=== PATIENT | female | born 1975 | race Native Hawaiian/Other Pacific Islander ===

== ENCOUNTER 2018-10-20 22:23 | Emergency (ER) | payer OTHER ==
[2018-10-20 23:57] LABS: Basophils # (Auto) 0.1 K/mm3 (0.0-0.1); Basophils % (Auto) 0.7 % (0.0-1.8); Eosinophils # (Auto) 0.3 K/mm3 (0.0-0.4); Eosinophils % (Auto) 3.5 % (0.0-4.3); Hematocrit 33.8 % (30.3-42.9); Lymphocytes # (Auto) 2.6 K/mm3 (1.2-5.4); Lymphocytes % (Auto) 32.2 % (13.4-35.0); Mean Corpuscular HGB Conc 33 % (30-34); Mean Corpuscular Volume 83 fl (79-97); Monocytes # (Auto) 0.7 K/mm3 (0.0-0.8); Monocytes % (Auto) 8.8 % (0.0-7.3); Platelet Count 242 K/mm3 (140-440); Red Blood Count 4.09 M/mm3 (3.65-5.03); Red Cell Distribution Width 17.6 % (13.2-15.2)
[2018-10-21 00:14] LABS: BUN/Creatinine Ratio 16; Blood Urea Nitrogen 11 mg/dL (7-17); Calcium 9.6 mg/dL (8.4-10.2); Hemolysis Index 4
[2018-10-21] MEDS ORDERED: LEVSIN SL SL ONE (03:47)
[2018-10-21] MEDS ORDERED: ZOFRAN ODT PO STA (03:47)
--- NOTE | 2018-10-21 05:32 | Ultrasound Report ---
PROCEDURE: US TRANSVAGINAL TECHNIQUE: Transvaginal imaging was obtained of the pelvis. HISTORY: pelvic pain and heavy vag bleeding COMPARISONS: None FINDINGS: The uterus is anteverted measuring 11.7 x 4.6 x 7.2 cm. Along the anterior wall of the body of uterus is a myometrial mass measuring 1.6 x 1.2 x 1.1 cm compatible with fibroid. The endometrium measures 20 mm in thickness. It is homogeneous in echotexture. Free fluid is not seen. The right ovary is normal in size contour and echotexture measuring 2.1 x 1.3 x 1.4 cm. The left ovary measures 4.5 x 3.5 x 4.3 cm. There is a 4.1 cm anechoic cyst in the leftward. There is a smaller 1.6 cm anechoic cyst. IMPRESSION: Thickened secretory endometrium measuring 20 mm in thickness. Small fibroid anterior wall of the body uterus. Anechoic cyst left ovary the larger measuring 4.1 cm in diameter. No evidence of free fluid. This document is electronically signed by Terry Perera MD., October 21 2018 05:30:41 AM ET
--- NOTE | 2018-10-21 05:35 | Ultrasound Report ---
PROCEDURE: US PELVIC COMPLETE TECHNIQUE: Transabdominal imaging was obtained of the pelvis. HISTORY: pelvic pain and heavy vag bleeding COMPARISONS: None FINDINGS: The uterus is anteverted measuring 11.7 x 4.6 x 7.2 cm. Along the anterior wall of the body of uterus is a 1.6 x 1.2 x 1.1 cm fibroid. The endometrium is thickened measuring 20 mm. It is of homogeneous echotexture. Free fluid is not seen. The right ovary is normal in size contour and echotexture measuring 2.1 x 1.3 x 1.4 cm. The left ovary is mildly enlarged measuring 4.5 x 3.5 x 4.3 cm. Within the left ovary are 2 anechoic cysts one measuring 4.1 cm in diameter and the other measuring 1.6 cm in diameter. IMPRESSION: Thickened endometrium measuring 20.0 mm in thickness.. Anechoic functional cysts in the left ovary, the larger measuring 4.1 cm in diameter. Repeat imaging is recommended after 2 menstrual cycles No evidence of free fluid. Small fibroid anterior wall of the body uterus. This document is electronically signed by Terry Perera MD., October 21 2018 05:33:09 AM ET
--- NOTE | 2018-10-21 05:47 | Emergency Department Report ---
ED Abdominal Pain HPI - General Chief Complaint: Abdominal Pain Stated Complaint: WEAKNESS/EMESIS Time Seen by Provider: 10/21/18 03:46 Source: patient Mode of arrival: Ambulatory Limitations: No Limitations - History of Present Illness Initial Comments: pt presents for bilat Lower quad abd pain and vaginal bleeding, pain is 5/10 aching constant pain is relieved by nothing pain is exacerbated by palpation and movement there is no fever or chills no vomiting. MD Complaint: abdominal pain Location: LLQ, RLQ Radiation: LLQ, RLQ Migration to: no migration Severity: moderate Severity scale (0 -10): 4 Quality: aching Consistency: constant Improves With: nothing Worsens With: movement Associated Symptoms: nausea. denies: vomiting, diarrhea, fever, constipation, dysuria, melena - Related Data LMP Date: 10/07/18 Previous Rx's Medication Instructions Recorded Last Taken Type Azithromycin [Zithromax TAB] 500 mg PO QDAY #3 tablet 07/03/15 Unknown Rx HYDROcodone/APAP 5-325 [[place] 1 each PO Q6HR PRN #14 tablet 07/03/15 Unknown Rx 5/325] Promethazine [Phenergan TAB] 25 mg PO Q6HR PRN #10 tab 07/03/15 Unknown Rx Ketorolac [Toradol] 10 mg PO Q6H PRN #10 tablet 10/21/18 Unknown Rx Ondansetron [Zofran ODT TAB] 8 mg PO Q12HR #10 tab.rapdis 10/21/18 Unknown Rx Allergies Allergy/AdvReac Type Severity Reaction Status Date / Time No Known Allergies Allergy Verified 10/20/18 22:28 ED Review of Systems ROS: Stated complaint: WEAKNESS/EMESIS Other details as noted in HPI Constitutional: denies: chills, fever Eyes: denies: eye pain, eye discharge, vision change ENT: denies: ear pain, throat pain Respiratory: denies: cough, shortness of breath, wheezing Cardiovascular: denies: chest pain, palpitations Endocrine: no symptoms reported Gastrointestinal: abdominal pain, nausea. denies: vomiting, diarrhea, constipation, hematemesis, melena, hematochezia Genitourinary: denies: urgency, dysuria, frequency, discharge, dyspareunia Musculoskeletal: denies: back pain, joint swelling, arthralgia Skin: denies: rash, lesions Neurological: denies: headache, weakness, paresthesias Psychiatric: denies: anxiety, depression Hematological/Lymphatic: denies: easy bleeding, easy bruising ED Past Medical Hx - Past Medical History Previous Medical History?: Yes Additional medical history: high cholesterol- diet controlled - Surgical History Past Surgical History?: No - Social History Smoking Status: Never Smoker Substance Use Type: None - Medications Home Medications: Home Medications Medication Instructions Recorded Confirmed Last Taken Type Azithromycin [Zithromax TAB] 500 mg PO QDAY #3 tablet 07/03/15 Unknown Rx HYDROcodone/APAP 5-325 [[place] 1 each PO Q6HR PRN #14 tablet 07/03/15 Unknown Rx 5/325] Promethazine [Phenergan TAB] 25 mg PO Q6HR PRN #10 tab 07/03/15 Unknown Rx Ketorolac [Toradol] 10 mg PO Q6H PRN #10 tablet 10/21/18 Unknown Rx Ondansetron [Zofran ODT TAB] 8 mg PO Q12HR #10 tab.rapdis 10/21/18 Unknown Rx ED Physical Exam - General Limitations: No Limitations General appearance: alert, in no apparent distress - Head Head exam: Present: atraumatic, normocephalic - Eye Eye exam: Present: normal appearance - ENT ENT exam: Present: mucous membranes moist - Neck Neck exam: Present: normal inspection - Respiratory Respiratory exam: Present: normal lung sounds bilaterally, wheezes. Absent: respiratory distress, rales, rhonchi, stridor, chest wall tenderness - Cardiovascular Cardiovascular Exam: Present: regular rate, normal rhythm, normal heart sounds. Absent: systolic murmur, diastolic murmur, rubs, gallop - GI/Abdominal GI/Abdominal exam: Present: soft, normal bowel sounds. Absent: distended, tenderness, guarding, rebound, rigid, bruit, hernia - Rectal Rectal exam: Present: deferred - External exam: Present: other (exam deferred per patient ) - Extremities Exam Extremities exam: Present: normal inspection, full ROM, tenderness, normal capillary refill. Absent: joint swelling, calf tenderness - Back Exam Back exam: Present: normal inspection, full ROM. Absent: tenderness, CVA tenderness (R), CVA tenderness (L), muscle spasm, paraspinal tenderness, vertebral tenderness, rash noted - Neurological Exam Neurological exam: Present: alert, oriented X3, CN II-XII intact, normal gait, reflexes normal - Psychiatric Psychiatric exam: Present: normal affect, normal mood, manic. Absent: anxious, suicidal ideation - Skin Skin exam: Present: warm, dry, intact, normal color. Absent: rash ED Course Vital Signs 10/20/18 22:28 Temperature 97.8 F Pulse Rate 66 Respiratory 18 Rate Blood Pressure 122/48 O2 Sat by Pulse 98 Oximetry ED Medical Decision Making - Lab Data Result diagrams: 10/20/18 23:36 10/20/18 23:36 Labs 10/20/18 10/20/18 10/20/18 23:36 23:36 23:36 WBC 8.1 RBC 4.09 Hgb 11.0 Hct 33.8 MCV 83 MCH 27 L MCHC 33 RDW 17.6 H Plt Count 242 Lymph % (Auto) 32.2 Wake % (Auto) 8.8 H Eos % (Auto) 3.5 Baso % (Auto) 0.7 Lymph # 2.6 Wake # 0.7 Eos # 0.3 Baso # 0.1 Seg Neutrophils % 54.8 Seg Neutrophils # 4.4 Sodium 138 Potassium 4.2 Chloride 101.3 Carbon Dioxide 23 Anion Gap 18 BUN 11 Creatinine 0.7 Estimated GFR > 60 BUN/Creatinine Ratio 16 Glucose 96 Calcium 9.6 HCG, Qual Negative - Radiology Data Radiology results: report reviewed, image reviewed Ordering Physician: ANAIS STANLEY Date of Service: 10/21/18 Procedure(s): US transvaginal Accession Number(s): [id number] cc: ANAIS STANLEY PROCEDURE: US TRANSVAGINAL TECHNIQUE: Transvaginal imaging was obtained of the pelvis. HISTORY: pelvic pain and heavy vag bleeding COMPARISONS: None FINDINGS: The uterus is anteverted measuring 11.7 x 4.6 x 7.2 cm. Along the anterior wall of the body of uterus is a myometrial mass measuring 1.6 x 1.2 x 1.1 cm compatible with fibroid. The endometrium measures 20 mm in thickness. It is homogeneous in echotexture. Free fluid is not seen. The right ovary is normal in size contour and echotexture measuring 2.1 x 1.3 x 1.4 cm. The left ovary measures 4.5 x 3.5 x 4.3 cm. There is a 4.1 cm anechoic cyst in the leftward. There is a smaller 1.6 cm anechoic cyst. IMPRESSION: Thickened secretory endometrium measuring 20 mm in thickness. Small fibroid anterior wall of the body uterus. Anechoic cyst left ovary the larger measuring 4.1 cm in diameter. No evidence of free fluid. This document is electronically signed by Terry Perera MD., October 21 2018 05:30:41 AM ET Transcribed By: RB Dictated By: TERRY PERERA MD Electronically Authenticated By: TERRY FREGOSO - Medical Decision Making us: ovarian cyst, Fibroids, abd pain is improved, plan: dc to home with rx for toradol po. zofra, follow up with pcp and [facility] as scheuled , pt verbalized agreement and understanding of discharge plan. Critical care attestation.: If time is entered above; I have spent that time in minutes in the direct care of this critically ill patient, excluding procedure time. ED Disposition Clinical Impression: Fibroid Ovarian cyst Qualifiers: Laterality: right Qualified Code(s): N83.201 - Unspecified ovarian cyst, right side Disposition: DC-01 TO HOME OR SELFCARE Is pt being admited?: No Does the pt Need Aspirin: No Condition: Stable Instructions: Dysmenorrhea (ED), Abdominal Pain (ED), Menorrhagia (ED), Uterine Fibroids (ED), Ovarian Cyst (ED) Prescriptions: Ketorolac [Toradol] 10 mg PO Q6H PRN #10 tablet PRN Reason: Pain Ondansetron [Zofran ODT TAB] 8 mg PO Q12HR #10 tab.rapdis Referrals: [facility] [Provider Group] - 3-5 Days [facility] [Provider Group] - 3-5 Days [facility] [Primary Care Provider] - 3-5 Days Forms: Work/School Release Form(ED) Time of Disposition: 06:00
[2018-10-21 06:48] VITALS: BP 101/65
== END 2018-10-21 06:53 | disposition home or self-care (01) ==
LOC: ED 22:23
DX: N83.202 Unspecified ovarian cyst, left side (principal); D25.9 Leiomyoma of uterus, unspecified; E78.00 Pure hypercholesterolemia, unspecified; Z79.899 Other long term (current) drug therapy
CPT/HCPCS: 36415; 76830; 76856; 80048; 84703; 85025; 99284; Q0162